=== PATIENT | female | born 1990 | race Caucasian/White ===

== ENCOUNTER 2019-10-12 16:44 | Emergency (ER) | payer OTHER ==
--- NOTE | 2019-10-12 17:01 | ER Document Report ---
ED Medical Screen (RME) - General Chief Complaint: Abdominal Cramping Stated Complaint: ABDOMINAL PAIN,VAGINAL DISCHARGE Time Seen by Provider: 10/12/19 16:55 Primary Care Provider: ALECIA BAKER PA-C [Primary Care Provider] - Follow up as needed Mode of Arrival: Ambulatory Information source: Patient Notes: Patient presents complaining of lower pelvic pain. Patient states that cramping started today but she has had low back pain for the past several days. Patient states that she did remove a tampon that had been there for the past 4 days. Patient denies any fever nausea or vomiting. Patient denies any urinary symptoms. I have greeted and performed a rapid initial assessment of this patient. A comprehensive ED assessment and evaluation of the patient, analysis of test results and completion of the medical decision making process will be conducted by additional ED providers. - Related Data Allergies/Adverse Reactions: No Known Allergies Allergy (Verified 10/12/19 16:55) Past Medical History - Social History Frequency of alcohol use: Occasional Drug Abuse: None Physical Exam - Vital signs Vitals: Temp Pulse Resp BP Pulse Ox 98.5 F 67 14 134/83 H 98 10/12/19 16:48 10/12/19 16:48 10/12/19 16:48 10/12/19 16:48 10/12/19 16:48 - Abdominal Tenderness: Tender - lower pelvic tenderness Course - Vital Signs Vital signs: Temp Pulse Resp BP Pulse Ox 98.5 F 67 14 134/83 H 98 10/12/19 16:48 10/12/19 16:48 10/12/19 16:48 10/12/19 16:48 10/12/19 16:48 Doctor's Discharge - Discharge Referrals: ALECIA BAKER PA-C [Primary Care Provider] - Follow up as needed
[2019-10-12 17:45] LABS: ABSOLUTE BASOPHILS # (AUTO) 0.1 10^3/uL (0.0-0.2); ABSOLUTE EOSINOPHILS # (AUTO) 0.1 10^3/uL (0.0-0.6); ABSOLUTE LYMPHOCYTES (AUTO) 2.5 10^3/uL (0.5-4.7); ABSOLUTE MONOCYTES (AUTO) 0.3 10^3/uL (0.1-1.4); ABSOLUTE NEUT (AUTO) 3.1 10^3/uL (1.7-8.2); EOSINOPHILS % (AUTO) 2.3 % (0-6); HEMATOCRIT 42.8 % (36.0-47.0); LYMPHOCYTES % (AUTO) 40.3 % (13-45); MEAN CORPUSCULAR HGB CONC 34.9 g/dL (32.0-36.0); MEAN CORPUSCULAR VOLUME 89 fl (80-97); MONOCYTES % (AUTO) 5.6 % (3-13); PLATELET COUNT 191 10^3/uL (150-450); RED BLOOD COUNT 4.82 10^6/uL (3.72-5.28); RED CELL DISTRIBUTION WIDTH 12.8 % (11.5-14.0); SEGMENTED NEUTROPHILS % (AUTO) 50.8 % (42-78); TOTAL CELLS COUNTED % (AUTO) 100 %; WHITE BLOOD COUNT 6.1 10^3/uL (4.0-10.5)
[2019-10-12 18:06] LABS: ALBUMIN 4.9 g/dL (3.5-5.0); ALKALINE PHOSPHATASE 63 U/L (38-126); ANION GAP 5 (5-19); ASPARTATE AMINO TRANSFERASE 42 U/L (14-36); BILIRUBIN,TOTAL 0.8 mg/dL (0.2-1.3); BLOOD UREA NITROGEN 22 mg/dL (7-20); CALCIUM 9.8 mg/dL (8.4-10.2); CARBON DIOXIDE 28 mmol/L (22-30); CHLORIDE 105 mmol/L (98-107); GLUCOSE 99 mg/dL (75-110); POTASSIUM 4.5 mmol/L (3.6-5.0); TOTAL PROTEIN 7.7 g/dL (6.3-8.2)
--- NOTE | 2019-10-12 18:12 | RADIOLOGY REPORT (SQ) ---
EXAM DESCRIPTION: U/S NON OB PEL TV W/DOPPLER IMAGES COMPLETED DATE/TIME: 10/12/2019 5:56 pm REASON FOR STUDY: pelvic pain COMPARISON: None. TECHNIQUE: Dynamic and static grayscale images acquired of the pelvis via transvaginal approach and recorded on PACS. Additional selected color Doppler and spectral images recorded. LIMITATIONS: None. FINDINGS: UTERUS: Contour normal. No mass. ENDOMETRIAL STRIPE: IUD within the endometrial cavity. CERVIX: The cervix measures 3.1 cm in length. No nabothian cysts. RIGHT OVARY AND DOPPLER: Normal size. A 1.5 x 1.3 x 1.1 cm dominant follicle. Normal arterial vascu lar flow without evidence for torsion. LEFT OVARY AND DOPPLER: Normal size. No worrisome masses. Normal arterial vascular flow without evide nce for torsion. FREE FLUID: None noted. OTHER: No other significant finding. MEASUREMENTS: UTERUS: 8.1 x 5.4 x 3.8 cm ENDOMETRIAL STRIPE: IUD RIGHT OVARY: 3.3 x 1.7 x 2.2 cm LEFT OVARY: 3.1 x 2.0 x 2.2 cm IMPRESSION: 1. IUD within the endometrial cavity. 2. A right ovarian dominant follicle. TECHNICAL DOCUMENTATION: JOB ID: [id number] 2010 [employer]- All Rights Reserved Rev-08/29 Reading location - IP/workstation name: [email or web address]
[2019-10-12 18:39] LABS: AMORPHOUS SEDIMENT,URINE TRACE /HPF; APPEARANCE,URINE CLOUDY; BILIRUBIN,URINE NEGATIVE (NEGATIVE); COLOR,URINE YELLOW; GLUCOSE, URINE NEGATIVE (NEGATIVE); KETONES,URINE TRACE mg/dL (NEGATIVE); LEUKOCYTE ESTERASE,URINE TRACE (NEGATIVE); NITRITE,URINE NEGATIVE (NEGATIVE); PROTEIN,URINE NEGATIVE (NEGATIVE); URINE SPECIFIC GRAVITY 1.019; UROBILINOGEN,URINE NEGATIVE mg/dL (<2.0)
[2019-10-12] MEDS ORDERED: CEPHALEXIN 500 MG CAPSULE PO ONE (19:58)
[2019-10-12 19:59] LABS: CHLAM PCR NOT DETECTED (NOT DETECT)
--- NOTE | 2019-10-12 20:03 | ER Document Report ---
HPI - HPI Patient complains to provider of: Pelvic pain Time Seen by Provider: 10/12/19 19:10 Onset: This morning Onset/Duration: Gradual Quality of pain: Achy Pain Level: 2 Context: Patient states that she developed lower pelvic cramping and low back pain today. Patient states she did realize that she had not remove the tampon that had been there for 4 days. Patient denies any fever nausea or vomiting. Patient denies any urinary symptoms. Patient denies any concern about STI. Patient denies any rash. Associated Symptoms: denies: Fever, Nausea, Vomiting Exacerbated by: Denies Relieved by: Denies Similar symptoms previously: No Recently seen / treated by doctor: No - ROS ROS below otherwise negative: Yes Systems Reviewed and Negative: Yes All other systems reviewed and negative - CONSTITUTIONAL Constitutional: DENIES: Fever, Chills - NEURO Neurology: DENIES: Headache - RESPIRATORY Respiratory: DENIES: Coughing - GASTROINTESTINAL Gastrointestinal: REPORTS: Abdominal Pain. DENIES: Nausea, Patient vomiting - URINARY Urinary: DENIES: Dysuria, Urgency, Frequency - MUSCULOSKELETAL Musculoskeletal: REPORTS: Back Pain - DERM Skin Color: Normal Skin Problems: None Past Medical History - General Information source: Patient - Social History Smoking Status: Never Smoker Frequency of alcohol use: Occasional Drug Abuse: None Lives with: Family Family History: Reviewed & Not Pertinent - Medical History Medical History: Negative Past Surgical History: Reports: Hx Orthopedic Surgery Vertical Provider Document - CONSTITUTIONAL Agree With Documented VS: Yes Exam Limitations: No Limitations General Appearance: WD/WN, No Apparent Distress - HEENT HEENT: Atraumatic, Normocephalic - NECK Neck: Normal Inspection, Supple - RESPIRATORY Respiratory: Breath Sounds Normal, No Respiratory Distress - CARDIOVASCULAR Cardiovascular: Regular Rate, Regular Rhythm - GI/ABDOMEN Gastrointestinal: Abdomen Soft, Abdomen Tender - Lower pelvic tenderness, No Organomegaly - REPRODUCTIVE Notes: Malodorous discharge - BACK Back: Abnormal Inspection - Lumbar paraspinal tenderness. negative: CVA Tenderness-Right - MUSCULOSKELETAL/EXTREMETIES Musculoskeletal/Extremeties: MERARY KINSEY - NEURO Level of Consciousness: Awake, Alert, Appropriate Motor/Sensory: No Motor Deficit - DERM Integumentary: Warm, Dry, No Rash Course - Re-evaluation Re-evalutation: 10/12/19 Discussed results of patient's diagnostic evaluation with patient. Patient encouraged to increase fluids and stay well-hydrated. Discussed with patient concern about retained tampon. No concern for toxic shock syndrome at this time. Patient without any leukocytosis or fever. Will start antibiotics at this time. Good return precautions discussed with patient. - Vital Signs Vital signs: Temp Pulse Resp BP Pulse Ox 98.5 F 67 14 134/83 H 98 10/12/19 16:48 10/12/19 16:48 10/12/19 16:48 10/12/19 16:48 10/12/19 16:48 - Laboratory Result Diagrams: 10/12/19 17:27 10/12/19 17:27 Laboratory results interpreted by me: 10/12/19 10/12/19 17:27 17:53 BUN 22 H AST 42 H Urine Ketones TRACE H Ur Leukocyte Esterase TRACE H Discharge - Discharge Clinical Impression: Pelvic pain, Vaginal discharge Condition: Stable Disposition: HOME, SELF-CARE Instructions: Cephalexin ([facility]), Pelvic Pain ([facility]) Additional Instructions: Return immediately for any new or worsening symptoms Followup with your primary care provider, call tomorrow to make a followup appointment Cultures are pending, will call if you need any different treatment Prescriptions: Metronidazole [Flagyl 500 mg Tablet] 500 mg PO BID #14 tablet Cephalexin Monohydrate [Keflex 500 mg Capsule] 500 mg PO Q6H 10 Days #40 capsule Naproxen [Naprosyn 250 Nmg Tablet] 1 tab PO BID #14 tablet Referrals: ALECIA BAKER PA-C [COMMUNITY BASED STAFF] - Follow up as needed [facility] [Provider Group] - Follow up as needed
[2019-10-12 20:20] VITALS: BP 126/72
[2019-10-12 20:32] LABS: T.VAGINALIS (WET MOUNT) NO TRICHOMONAS SEEN; WBCS (WET MOUNT) 4+ WBCS SEEN; YEAST (WET MOUNT) NO YEAST SEEN
[2019-10-12 20:33] LABS: BACTERIA (WET MOUNT) 4+ BACTERIA SEEN; EPITHELIALS (WET MOUNT) 3+ EPITHELIALS SEEN; RBCS (WET MOUNT) 2+ RBCS SEEN
== END 2019-10-12 20:20 | disposition home or self-care (01) ==
LOC: ER 16:44
DX: R10.2 Pelvic and perineal pain (principal); M54.5 Low back pain; N89.8 Other specified noninflammatory disorders of vagina
CPT/HCPCS: 36415; 76830; 80053; 81001; 84703; 85025; 87210; 87491; 87591; 93976; 99284

== ENCOUNTER → 2019-11-05 | Outpatient (CLI) | payer OTHER ==
--- NOTE | 2019-11-05 15:13 | RADIOLOGY REPORT (SQ) ---
EXAM DESCRIPTION: MRI LT LOWER JOINT WITHOUT IMAGES COMPLETED DATE/TIME: 11/05/2019 12:52 pm REASON FOR STUDY: M67.864 OTHER SPECIFIED DISORDERS OF TENDON, LEFT KNEE M67.864 OTHER SPECIFIED DI SORDERS OF TENDON, LEFT KNEE COMPARISON: None. TECHNIQUE: Non arthrogram noncontrast MRI leftknee images acquired and stored on PACS. Multiplanar images include fat sensitive sequences as T1, water sensitive sequences as FST2 or STIR, cartilage se nsitive sequences as FSPD, and gradient echo sequences. LIMITATIONS: None. FINDINGS: JOINT AND BURSAE: No effusion. BONE CORTEX AND MARROW: No alteration of signal to suggest marrow replacement. No worrisome bone lesi ons. No occult fracture. ACL: Prior ACL repair. On T2 and gradient echo images there intact ACL graft sagittal images 13-14. PCL: Intact. MCL: Intact. No periligamentous edema or fluid. LCL: Intact. No periligamentous edema or fluid. MEDIAL MENISCUS: No tears. No abnormal signal. LATERAL MENISCUS: Complex tear left lateral meniscus mid body and posterior horn, best shown on coron al images 12-17, sagittal images 19-21. No parameniscal cyst MEDIAL COMPARTMENT: Cartilage preserved. No bone bruises or reactive marrow edema. No osteophytes. LATERAL COMPARTMENT: Mild chondromalacia. No bone bruises or reactive marrow edema. No osteophytes. PATELLA: No chondromalacia. No subchondral cysts. Medial and lateral retinacula intact. EXTENSOR MECHANISM: Intact. Quadriceps and patella tendons normal. SOFT TISSUES: Adjacent muscles and subcutaneous tissues normal. Normal flow void in popliteal artery and vein. OTHER: No other significant finding. IMPRESSION: Intact ACL graft Diffuse complex tear mid body and posterior horn lateral meniscus no parameniscal cyst. TECHNICAL DOCUMENTATION: JOB ID: [id number] 2010 [employer]- All Rights Reserved Reading location - IP/workstation name: [email or web address]
== END ==
LOC: RAD 12:04
PROVIDERS: ATTEND Physician Assistant
DX: M67.864 Other specified disorders of tendon, left knee (principal); M25.562 Pain in left knee